=== PATIENT | male | born 2000 | race Caucasian/White ===

== ENCOUNTER 2019-11-17 11:53 | Inpatient (IN) | payer OTHER ==
[~2019-11-17] VITALS: Ht 167.6 cm; Wt 57.5 kg
[2019-11-17] MEDS ORDERED: DIPHENHYDRAMINE 50 MG/ML, 1ML IVPush ONE (12:30)
[2019-11-17] MEDS ORDERED: METOCLOPRAMIDE 5 MG/ML, 2ML IVPush ONE (12:30)
[2019-11-17] MEDS ORDERED: SODIUM CHLORIDE FLUSH 10ML SYR IVF ONE (12:30)
[2019-11-17] MEDS ORDERED: METOCLOPRAMIDE 5 MG/ML, 2ML ONE (12:43)
[2019-11-17] MEDS ORDERED: DIPHENHYDRAMINE 50 MG/ML, 1ML ONE (12:43)
--- NOTE | 2019-11-17 12:56 | NUR ---
PT STATED HE TAKES HIS FACTOR 2X A WEEK AND LAST TOOK IT YESTERDAY MORNING.
[2019-11-17] MEDS ORDERED: NOVOSEVEN RT (FACTOR VIIA) RECOMB 1,000 MCG IVPush ONE (13:00)
[2019-11-17 13:18] LABS: BASOPHILS # (AUTO) 0.02 x10^3/uL (0-0.3); BASOPHILS % (AUTO) 0 % (0-1); EOSINOPHILS # (AUTO) 0.03 x10^3/uL (0-0.8); EOSINOPHILS % (AUTO) 0 % (1-7); LYMPHOCYTES # (AUTO) 1.66 x10^3/uL (1-6.1); LYMPHOCYTES % (AUTO) 21 % (22-44); MD NO; MEAN CORPUSCULAR HEMOGLOBIN 31.9 pg (27.5-34.5); MEAN CORPUSCULAR HGB CONC 33.8 g/dL (33.2-36.2); MEAN CORPUSCULAR VOLUME 94.3 fL (81-97); MEAN PLATELET VOLUME 7.5 fL (7.4-10.4); MONOCYTES % (AUTO) 9 % (2-9); NEUTROPHILS # (AUTO) 5.39 x10^3/uL (1.8-8.0); NEUTROPHILS % (AUTO) 69 % (42-75); PLATELET COUNT 310 x10^3/uL (130-400); RED BLOOD COUNT 5.06 x10^6/uL (4.38-5.82); RED CELL DISTRIBUTION WIDTH 12.5 % (9.4-14.8)
[2019-11-17 13:27] LABS: ALBUMIN 4.4 g/dL (3.4-5.0); ANION GAP 5 mmol/L (5-15); CALCIUM 9.8 mg/dL (8.5-10.1); CHLORIDE 104 mmol/L (98-107); CREATININE 1.14 mg/dL (0.7-1.3)
--- NOTE | 2019-11-17 13:53 | NUR ---
BREAK RN: PT RESTING IN ROOM. VS STABLE. TIP MENDER ON. NSR NOTED. CALL LIGHT IN PLACE. WILL CONTINUE TO MONITOR WHILE PRIMARY RN IS ON BREAK.
[2019-11-17] MEDS: SODIUM CHLORIDE 0.9% 1,000 ML IV SCH (14:22)
--- NOTE | 2019-11-17 14:24 | NUR ---
REPORT GIVEN TO SYDNI DURON
[2019-11-17] MEDS ORDERED: ENALAPRILAT 1.25 MG/ML, 2ML IVPush PRN (14:30)
[2019-11-17] MEDS ORDERED: BISACODYL 10 MG SUPP PR PRN (14:30)
[2019-11-17] MEDS ORDERED: POLYETHYLENE GLYCOL 17 GM PACKET PO PRN (14:30)
[2019-11-17] MEDS ORDERED: LABETALOL 5MG/ML, 20ML IVPush PRN (14:30)
[2019-11-17] MEDS ORDERED: ONDANSETRON 2MG/ML, 2ML IVPush PRN (14:30)
[2019-11-17 14:34] LABS: INTERNATIONAL NORMALIZED RATIO 0.76 (0.93-1.1)
--- NOTE | 2019-11-17 15:02 | NUR ---
PROVIDER DR CORONEL REQUESTED PT BED BE KEPT AT 30 DEG OR HIGHER
[2019-11-17 15:32] VITALS: BP 123/67
[2019-11-17] MEDS ORDERED: [UNRECOGNIZED DRUG - OTHER] IV ONE (17:00)
[2019-11-17] MEDS: ACETAMINOPHEN 325 MG TABLET PO PRN (22:14)
[2019-11-18] MEDS: SODIUM CHLORIDE 0.9% 1,000 ML IV SCH ×2 (03:51→17:02)
[2019-11-18 03:52] VITALS: BP 120/84
[2019-11-18 04:41] LABS: BASOPHILS # (AUTO) 0.03 x10^3/uL (0-0.3); BASOPHILS % (AUTO) 0 % (0-1); EOSINOPHILS # (AUTO) 0.13 x10^3/uL (0-0.8); EOSINOPHILS % (AUTO) 2 % (1-7); LYMPHOCYTES # (AUTO) 2.54 x10^3/uL (1-6.1); LYMPHOCYTES % (AUTO) 35 % (22-44); MD NO; MEAN CORPUSCULAR HGB CONC 33.8 g/dL (33.2-36.2); MEAN CORPUSCULAR VOLUME 94.6 fL (81-97); MEAN PLATELET VOLUME 7.6 fL (7.4-10.4); MONOCYTES # (AUTO) 0.73 x10^3/uL (0-1.4); MONOCYTES % (AUTO) 10 % (2-9); NEUTROPHILS # (AUTO) 3.77 x10^3/uL (1.8-8.0); NEUTROPHILS % (AUTO) 52 % (42-75); PLATELET COUNT 273 x10^3/uL (130-400); RED CELL DISTRIBUTION WIDTH 12.6 % (9.4-14.8)
[2019-11-18] MEDS: ACETAMINOPHEN 325 MG TABLET PO PRN ×3 (06:05→22:39)
[2019-11-18] MEDS: SENNA/DOCUSATE TABLET PO SCH (09:00)
[2019-11-18] MEDS ORDERED: ANTIHEMOPHILIC FACTOR VIII IVPush SCH (17:00)
[2019-11-18] MEDS ORDERED: [UNRECOGNIZED DRUG - OTHER] IV ONE (17:00)
[2019-11-18] MEDS ORDERED: [UNRECOGNIZED DRUG - OTHER] IV SCH (17:00)
[2019-11-18 18:49] VITALS: BP 114/71
[2019-11-18 22:44] VITALS: BP 145/87
[2019-11-18] MEDS ORDERED: SUMATRIPTAN 25 MG TABLET PO ONE (23:00)
[2019-11-19 01:24] VITALS: BP 118/58
[2019-11-19 05:32] LABS: BASOPHILS # (AUTO) 0.03 x10^3/uL (0-0.3); BASOPHILS % (AUTO) 0 % (0-1); EOSINOPHILS # (AUTO) 0.11 x10^3/uL (0-0.8); EOSINOPHILS % (AUTO) 1 % (1-7); LYMPHOCYTES # (AUTO) 2.18 x10^3/uL (1-6.1); LYMPHOCYTES % (AUTO) 28 % (22-44); MD NO; MEAN CORPUSCULAR HEMOGLOBIN 31.3 pg (27.5-34.5); MEAN CORPUSCULAR HGB CONC 33.3 g/dL (33.2-36.2); MEAN PLATELET VOLUME 7.8 fL (7.4-10.4); MONOCYTES # (AUTO) 0.66 x10^3/uL (0-1.4); MONOCYTES % (AUTO) 8 % (2-9); NEUTROPHILS # (AUTO) 4.82 x10^3/uL (1.8-8.0); NEUTROPHILS % (AUTO) 62 % (42-75); PLATELET COUNT 303 x10^3/uL (130-400); RED BLOOD COUNT 5.11 x10^6/uL (4.38-5.82); RED CELL DISTRIBUTION WIDTH 12.9 % (9.4-14.8)
[2019-11-19 06:56] VITALS: BP 141/91
[2019-11-19] MEDS: SENNA/DOCUSATE TABLET PO SCH (07:51)
[2019-11-19] MEDS: ACETAMINOPHEN 325 MG TABLET PO PRN ×3 (07:51→20:14)
[2019-11-19 14:00] VITALS: BP 123/81
[2019-11-19] MEDS: [UNRECOGNIZED DRUG - OTHER] IV SCH (17:15)
[2019-11-19 19:26] VITALS: BP 130/74
[2019-11-20] MEDS: [UNRECOGNIZED DRUG - OTHER] IV SCH ×3 (00:32→17:59)
[2019-11-20] MEDS: ACETAMINOPHEN 325 MG TABLET PO PRN ×4 (00:35→16:33)
[2019-11-20 00:48] VITALS: BP 120/84
[2019-11-20 06:01] LABS: BASOPHILS # (AUTO) 0.02 x10^3/uL (0-0.3); BASOPHILS % (AUTO) 0 % (0-1); EOSINOPHILS # (AUTO) 0.14 x10^3/uL (0-0.8); EOSINOPHILS % (AUTO) 2 % (1-7); LYMPHOCYTES # (AUTO) 2.15 x10^3/uL (1-6.1); LYMPHOCYTES % (AUTO) 28 % (22-44); MD NO; MEAN CORPUSCULAR HEMOGLOBIN 31.6 pg (27.5-34.5); MEAN CORPUSCULAR HGB CONC 33.1 g/dL (33.2-36.2); MEAN CORPUSCULAR VOLUME 95.5 fL (81-97); MEAN PLATELET VOLUME 7.3 fL (7.4-10.4); MONOCYTES # (AUTO) 0.71 x10^3/uL (0-1.4); MONOCYTES % (AUTO) 9 % (2-9); NEUTROPHILS # (AUTO) 4.74 x10^3/uL (1.8-8.0); NEUTROPHILS % (AUTO) 61 % (42-75); PLATELET COUNT 330 x10^3/uL (130-400); RED BLOOD COUNT 5.09 x10^6/uL (4.38-5.82); RED CELL DISTRIBUTION WIDTH 12.3 % (9.4-14.8)
[2019-11-20 07:45] VITALS: BP 134/88
[2019-11-20] MEDS: SENNA/DOCUSATE TABLET PO SCH (09:06)
[2019-11-20 13:17] VITALS: BP 133/78
[2019-11-20 20:46] VITALS: BP 134/88
[2019-11-21] MEDS: [UNRECOGNIZED DRUG - OTHER] IV SCH ×3 (01:04→21:38)
[2019-11-21] MEDS: ACETAMINOPHEN 325 MG TABLET PO PRN ×3 (01:04→23:18)
[2019-11-21 01:14] VITALS: BP 137/84
[2019-11-21 05:38] LABS: BASOPHILS # (AUTO) 0.05 x10^3/uL (0-0.3); BASOPHILS % (AUTO) 1 % (0-1); EOSINOPHILS # (AUTO) 0.18 x10^3/uL (0-0.8); EOSINOPHILS % (AUTO) 2 % (1-7); LYMPHOCYTES # (AUTO) 2.16 x10^3/uL (1-6.1); LYMPHOCYTES % (AUTO) 25 % (22-44); MD NO; MEAN CORPUSCULAR HEMOGLOBIN 31.8 pg (27.5-34.5); MEAN CORPUSCULAR HGB CONC 33.9 g/dL (33.2-36.2); MEAN CORPUSCULAR VOLUME 93.8 fL (81-97); MEAN PLATELET VOLUME 7.6 fL (7.4-10.4); MONOCYTES # (AUTO) 0.74 x10^3/uL (0-1.4); MONOCYTES % (AUTO) 8 % (2-9); NEUTROPHILS # (AUTO) 5.63 x10^3/uL (1.8-8.0); NEUTROPHILS % (AUTO) 64 % (42-75); PLATELET COUNT 300 x10^3/uL (130-400); RED BLOOD COUNT 4.86 x10^6/uL (4.38-5.82); RED CELL DISTRIBUTION WIDTH 12.4 % (9.4-14.8)
[2019-11-21] MEDS: SENNA/DOCUSATE TABLET PO SCH (07:52)
[2019-11-21 08:00] VITALS: BP 134/86
[2019-11-21 12:45] VITALS: BP 128/80
[2019-11-21 19:06] VITALS: BP 121/69
[2019-11-22 01:36] VITALS: BP 132/75
[2019-11-22] MEDS: ACETAMINOPHEN 325 MG TABLET PO PRN (04:54)
[2019-11-22 06:48] VITALS: BP 135/83
[2019-11-22] MEDS: SENNA/DOCUSATE TABLET PO SCH (08:58)
[2019-11-22] MEDS: [UNRECOGNIZED DRUG - OTHER] IV SCH (09:23)
[2019-11-22 10:12] LABS: BASOPHILS # (AUTO) 0.03 x10^3/uL (0-0.3); BASOPHILS % (AUTO) 0 % (0-1); EOSINOPHILS # (AUTO) 0.09 x10^3/uL (0-0.8); EOSINOPHILS % (AUTO) 1 % (1-7); LYMPHOCYTES # (AUTO) 1.56 x10^3/uL (1-6.1); LYMPHOCYTES % (AUTO) 20 % (22-44); MD NO; MEAN CORPUSCULAR HEMOGLOBIN 31.6 pg (27.5-34.5); MEAN CORPUSCULAR HGB CONC 33.6 g/dL (33.2-36.2); MEAN CORPUSCULAR VOLUME 93.9 fL (81-97); MEAN PLATELET VOLUME 7.4 fL (7.4-10.4); MONOCYTES # (AUTO) 0.52 x10^3/uL (0-1.4); MONOCYTES % (AUTO) 7 % (2-9); NEUTROPHILS # (AUTO) 5.57 x10^3/uL (1.8-8.0); NEUTROPHILS % (AUTO) 72 % (42-75); PLATELET COUNT 348 x10^3/uL (130-400); RED BLOOD COUNT 5.08 x10^6/uL (4.38-5.82); RED CELL DISTRIBUTION WIDTH 12.5 % (9.4-14.8)
[2019-11-24] MEDS ORDERED: [UNRECOGNIZED DRUG - OTHER] IV SCH (09:00)
== END 2019-11-22 14:01 | disposition left against medical advice (07) | DRG 64 ==
LOC: ED 12:34 → EDIP 13:15 → CCU 14:47 → 5SO 11-18 18:24
PROVIDERS: ADMIT Internal Medicine; ATTEND Internal Medicine
DX: I62.01 Nontraumatic acute subdural hemorrhage (principal); D66 Hereditary factor VIII deficiency; G93.5 Compression of brain; F12.90 Cannabis use, unspecified, uncomplicated; F17.210 Nicotine dependence, cigarettes, uncomplicated; M43.6 Torticollis; X58.XXXA Exposure to other specified factors, initial encounter; Z88.6 Allergy status to analgesic agent; Z88.0 Allergy status to penicillin; Z53.29 Procedure and treatment not carried out because of patient's decision for other reasons
CPT/HCPCS: 36415; 70450; 70490; 72050; 80048; 82040; 85025; 85240; 85610; 85730; 87081; 87880; 93005; 96374; 96375; 99291; G0378; J7189; J1200; J2765; J7030; J7192